=== PATIENT | female | born 1995 | race Two or more races ===

== ENCOUNTER 2017-11-23 19:45 | Emergency (ER) | payer MEDICAID ==
[2017-11-23 20:13] VITALS: BP 121/78
--- NOTE | 2017-11-23 21:07 | EDM.PDOC ---
ED HPI GENERAL MEDICAL PROBLEM - General Chief Complaint: Respiratory Problem Stated Complaint: cough headache congestion Time Seen by Provider: 11/23/17 20:22 Source of Information: Reports: Patient History Limitations: Reports: No Limitations - History of Present Illness INITIAL COMMENTS - FREE TEXT/NARRATIVE: 22-year-old female presents for evaluation and treatment of cough and a sore throat. She has been exposed to influenza a. Her father has influenza A. Patient reports headache, chills and congestion. No fever. No vomiting. Did not have influenza vaccine this season. 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 Denies: Fever HEENT: Reports: Throat Pain. Denies: Ear Pain Respiratory: Reports: Cough GI/Abdominal: Denies: Vomiting Neurological: Reports: Headache ED EXAM, GENERAL - Physical Exam Exam: See Below Exam Limited By: No Limitations General Appearance: Alert, WD/WN, No Apparent Distress Ears: Normal External Exam, Normal Canal, Hearing Grossly Normal, Normal TMs Nose: Normal Inspection Throat/Mouth: Normal Inspection, Normal Lips, Normal Oropharynx, Normal Voice, No Airway Compromise Neck: Normal Inspection Respiratory/Chest: No Respiratory Distress, Lungs Clear, Normal Breath Sounds Cardiovascular: Normal Peripheral Pulses, Regular Rate, Rhythm, No Murmur Neurological: Alert, Oriented, Normal Cognition Psychiatric: Normal Affect, Normal Mood Skin Exam: Warm, Dry, Normal Color Course - Vital Signs Last Recorded V/S: Last Vital Signs Temp 36.3 C 11/23/17 20:11 Pulse 83 11/23/17 20:11 Resp 16 11/23/17 20:11 BP 121/78 11/23/17 20:11 Pulse Ox 100 11/23/17 20:11 - Re-Assessments/Exams Free Text/Narrative Re-Assessment/Exam: 11/23/17 21:03 Patient returned positive for influenza A. Discussed risks and benefits of Tamiflu. She elects to proceed with the Tamiflu. Discharge instructions as documented. Departure - Departure Time of Disposition: 21:04 Disposition: Home, Self-Care 01 Condition: Fair Clinical Impression: Influenza - Discharge Information Prescriptions: Oseltamivir [Tamiflu] 75 mg PO BID #10 cap Referrals: PCP,None [Primary Care Provider] - Additional Instructions: Take the Tamiflu as prescribed. 1 cap Twice a day for 5 days. Tamiflu is known to cause upset stomach, nausea and diarrhea. You are contagious one day before your symptoms started and up to a week afterwards. Make sure you wash your hands and cover your cough. Rest. Make sure you're drinking plenty of fluids. [id number] Tylenol and Motrin as needed for headaches and additional pain and symptom relief. Follow-up with family medicine if not much better in 1-2 weeks. Please return to the ER for symptoms change or worsen.
== END 2017-11-23 21:14 | disposition home or self-care (01) ==
LOC: JD.ED 19:45
DX: J10.1 Influenza due to other identified influenza virus with other respiratory manifestations (principal); E66.9 Obesity, unspecified
CPT/HCPCS: 87804; 99283; 99284

== ENCOUNTER 2018-12-25 05:19 | Inpatient (IN) | payer OTHER ==
[2018-12-25] MEDS ORDERED: ceFAZolin 2 GM in Premix Bag 1 BAG IV ONE (05:45)
[2018-12-25] MEDS ORDERED: Oxytocin/Lactated Ringers 10 UNIT/1,000 ML BAG IV SCH (05:45)
[2018-12-25] MEDS ORDERED: Nalbuphine 20 MG/ML 1 ML Syringe IVPUSH PRN (05:45)
[2018-12-25] MEDS ORDERED: Sodium Chloride 0.9% 10 ML Syringe FLUSH PRN (05:45)
[2018-12-25] MEDS ORDERED: Citric Acid/Sodium Citrate Solution 30 ML Cup PO ONE (05:45)
[2018-12-25] MEDS ORDERED: Metoclopramide 10 MG/2 ML SDV IVPUSH ONE (05:45)
--- NOTE | 2018-12-25 06:11 | PCM.PREANE ---
Preanesthetic Assessment - Anesthesia/Transfusion/Family Hx Anesthesia History: Prior Anesthesia Without Reaction Family History of Anesthesia Reaction: No Transfusion History: No Prior Transfusion(s) Intubation History: Unknown - Review of Systems General: No Symptoms Pulmonary: No Symptoms Cardiovascular: No Symptoms Gastrointestinal: No Symptoms Neurological: No Symptoms Other: Reports: None - Physical Assessment NPO Status Date: 12/24/18 NPO Status Time: 11:55 O2 Sat by Pulse Oximetry: 96 Respiratory Rate: 16 Vital Signs: Last Vital Signs Temp 36.4 C 12/25/18 05:32 Pulse 84 12/25/18 05:32 Resp 16 12/25/18 05:32 BP 136/83 12/25/18 05:32 Pulse Ox 96 12/25/18 05:32 Height: 1.55 m Weight: 96.162 kg ASA Class: 2 Mental Status: Alert & Oriented x3 Airway Class: Mallampati = 2 Dentition: Reports: Normal Dentition ROM/Head Extension: Full Lungs: Clear to Auscultation, Normal Respiratory Effort Cardiovascular: Regular Rate, Regular Rhythm, No Murmurs - Allergies Allergies/Adverse Reactions: Allergies Allergy/AdvReac Type Severity Reaction Status Date / Time bee venom protein (honey bee) Allergy Other Verified 12/25/18 05:44 - Blood Blood Available: No Product(s) Available: None - Anesthesia Plan Pre-Op Medication Ordered: None - Acknowledgements Anesthesia Type Planned: Spinal Pt an Appropriate Candidate for the Planned Anesthesia: Yes Alternatives and Risks of Anesthesia Discussed w Pt/Guardian: Yes Pt/Guardian Understands and Agrees with Anesthesia Plan: Yes PreAnesthesia Questionnaire - Past Health History Medical/Surgical History: Denies Medical/Surgical History HEENT History: Reports: None Cardiovascular History: Reports: None Respiratory History: Reports: None Gastrointestinal History: Reports: GERD Genitourinary History: Reports: None 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: Musculoskeletal History: Reports: None Neurological History: Reports: None Psychiatric History: Reports: Anxiety Endocrine/Metabolic History: Reports: Obesity/BMI 30+ - Infectious Disease History Infectious Disease History: Reports: Chicken Pox - Past Surgical History Female Surgical History: Reports: Section - HOME MEDS Home Medications: Home Meds PNV95/Ferrous Fumarate/FA [ Tablet] 1 tab PO DAILY 07/20/18 [History] - CURRENT (IN HOUSE) MEDS Current Meds: Current Medications Cefazolin Sodium/Dextrose 2 gm (/ Premix) 50 mls @ 100 mls/hr IV ONETIME ONE Stop: 12/25/18 06:14 Lactated Ringer's (Ringers, Lactated) 1,000 mls @ 125 mls/hr IV ASDIRECTED [facility] Oxytocin/Lactated Ringer's (Pitocin In Lr 10 Units/1,000 Ml) 10 unit in 1,000 mls @ 100 mls/hr IV ASDIRECTED [facility] Nalbuphine HCl (Nubain) 10 mg IVPUSH Q2H PRN PRN Reason: pain Sodium Chloride (Saline Flush) 10 ml FLUSH ASDIRECTED PRN PRN Reason: Keep Vein Open Discontinued Medications Citric Acid/Sodium Citrate (Bicitra Solution) 30 ml PO ONETIME ONE Stop: 12/25/18 05:46 Metoclopramide HCl (Reglan) 10 mg IVPUSH ONETIME ONE Stop: 12/25/18 05:46
[2018-12-25] MEDS: Lactated Ringers 1,000 ML IV SCH ×2 (06:15→06:57)
[2018-12-25] MEDS ORDERED: Morphine PF 1 MG/ML Amp ONE (06:26)
[2018-12-25] MEDS ORDERED: Oxytocin 10 Units/1 ML SDV ONE ×3 (06:26→06:27)
[2018-12-25] MEDS ORDERED: ePHEDrine 50 MG/ML SDV ONE (06:27)
[2018-12-25] MEDS ORDERED: Ketorolac 30 MG/ML SDV ONE (06:27)
[2018-12-25] MEDS ORDERED: ceFAZolin 1 GM Vial ONE ×2 (06:27→06:28)
--- NOTE | 2018-12-25 07:07 | PCM.OPNOTE ---
- General Post-Op/Procedure Note Date of Surgery/Procedure: 12/25/18 Operative Procedure(s): Repeat low transverse Findings: Minimal adhesive disease between the rectus muscles and fascia. Minimal intraabdominal adhesive disease. Baby girl in a vertex presentation. Weight of 8 lbs 8 oz and APGARS of 8 & 9. Pre Op Diagnosis: 40 5/7 wks. History of Post-Op Diagnosis: Same Anesthesia Technique: Spinal Primary Surgeon: Eunice Brooks Secondary Surgeon: Olivia Mejia Anesthesia Provider: Mark Lopez Reason Food Manager Was Necessary: BMI of patient. Speed/safety of procedure. Pathology: Cord blood collected. Placenta discarded. Fluid Replacement, Intraop: 1,000 Output, Urine Amount: 10 EBL in mLs: 500 Complications: None Condition: Good Free Text/Narrative:: The risks, benefits, indications, potential complications, and alternatives were explained to the patient and informed consent obtained. After induction of anesthesia, the patient was placed in a supine position and then draped and prepped in the usual sterile manner. A Pfannenstiel incision was made and carried down through the subcutaneous tissue to the fascia. Fascial incision was made and extended transversely. The fascia was from the underlying rectus tissue superiorly and inferiorly. The peritoneum was identified and entered. Peritoneal incision was extended longitudinally. The utero-vesical peritoneal reflection was incised transversely and the bladder flap was bluntly freed from the lower uterine segment. A low transverse uterine incision was made sharply with a scalpel and extended bluntly in a cephalocaudad direction. A baby girl was delivered from a vertex presentation with APGARS as above. After the umbilical cord was clamped and cut cord blood was obtained for evaluation. The placenta was removed intact and appeared normal. The uterus was exteriorized and cleared of clots. The uterine outline, tubes and ovaries appeared normal. The uterine incision was closed with running locked sutures of 0 Vicryl. Hemostasis was obtained with a second imbricating layer of 0 vicryl. The uterus was then placed back into the abdomen. The infracolic gutters were cleared of blood clots. The fascia was then reapproximated with running sutures of 0 Vicryl. The sucutaneous tissue was irrigated with sterile warm normal saline, hemostasis obtained with cautery. This layer was also closed with a running 0 vicryl suture. The skin was reapproximated with running Subcuticular 4-0 monocryl sutures. Instrument, sponge, and needle counts were correct prior the abdominal closure and at the conclusion of the case.
[2018-12-25] MEDS ORDERED: Midazolam 1 MG/ML 2 ML SDV ONE (08:19)
[2018-12-25] MEDS ORDERED: fentaNYL 100 MCG/2 ML SDV IVPUSH PRN (08:43)
--- NOTE | 2018-12-25 08:45 | PCM.POSTAN ---
POST ANESTHESIA ASSESSMENT - MENTAL STATUS Mental Status: Alert - RESPIRATORY Respiratory Status: Respiratory Rate WNL, Airway Patent, O2 Saturation Stable - CARDIOVASCULAR CV Status: Pulse Rate WNL, Blood Pressure Stable - GASTROINTESTINAL GI Status: No Symptoms - POST OP HYDRATION Hydration Status: Adequate & Stable
--- NOTE | 2018-12-25 08:55 | PCM48HPAN ---
Post Anesthesia Note - EVALUATION WITHIN 48HRS OF ANESTHETIC Patient Participated in Evaluation: Yes Respiratory Function Stable: Yes Airway Patent: Yes Cardiovascular Function Stable: Yes Hydration Status Stable: Yes Pain Control Satisfactory: Yes Nausea and Vomiting Control Satisfactory: Yes Mental Status Recovered: Yes Resp Rate: 20
[2018-12-25] MEDS ORDERED: Dextrose 5%-Lactated Ringers 1,000 ML IV SCH (09:19)
[2018-12-25] MEDS ORDERED: Lanolin 100% Cream 7 GM Tube TOP PRN (09:19)
[2018-12-25] MEDS ORDERED: ePHEDrine 50 MG/ML SDV IVPUSH PRN (09:19)
[2018-12-25] MEDS ORDERED: Naloxone 0.4 MG/ML SDV IVPUSH PRN (09:19)
[2018-12-25] MEDS ORDERED: diphenhydrAMINE 50 MG/ML SDV IVPUSH PRN (09:19)
[2018-12-25] MEDS ORDERED: Ondansetron 4 MG/2 ML SDV IV PRN (09:19)
[2018-12-25] MEDS: Acetaminophen/oxyCODONE 325-5 MG Tab PO PRN (11:27)
[2018-12-25] MEDS ORDERED: Ketorolac 30 MG/ML SDV IVPUSH SCH (14:15)
[2018-12-25] MEDS: Ketorolac 30 MG/ML SDV IVPUSH SCH (21:46)
[2018-12-26] MEDS: Ketorolac 30 MG/ML SDV IVPUSH SCH (04:13)
--- NOTE | 2018-12-26 06:27 | PCM.PNPP ---
- General Info Date of Service: 12/26/18 Functional Status: Reports: Pain Controlled, Tolerating Diet, Ambulating - Review of Systems General: Reports: No Symptoms Pulmonary: Reports: No Symptoms Cardiovascular: Reports: Palpitations Gastrointestinal: Reports: No Symptoms Genitourinary: Reports: No Symptoms Musculoskeletal: Reports: No Symptoms Neurological: Reports: No Symptoms - Patient Data Vital Signs - Most Recent: Last Vital Signs Temp 36.7 C 12/26/18 03:58 Pulse 111 H 12/26/18 03:59 Resp 16 12/26/18 06:00 BP 132/79 12/26/18 03:58 Pulse Ox 98 12/26/18 06:00 Weight - Most Recent: 96.162 kg I&O - Last 24 Hours: Intake & Output 12/25/18 12/25/18 12/26/18 14:59 22:59 06:59 Intake Total 1940 600 Output Total 495 1400 1230 Balance 1445 -800 -1230 Lab Results - Last 24 Hours: Laboratory Results - last 24 hr 12/25/18 Range/Units 05:54 Blood Type O POSITIVE Gel Antibody Screen Negative Med Orders - Current: Current Medications Diphenhydramine HCl (Benadryl) 25 mg IVPUSH Q6H PRN PRN Reason: Itching or Nausea Docusate Sodium (Colace) 100 mg PO Q12H PRN PRN Reason: Constipation Emollient Ointment (Lansinoh Hpa) 0 gm TOP ASDIRECTED PRN PRN Reason: Sore Nipples Ephedrine Sulfate (Ephedrine Sulfate) 5 mg IVPUSH SEECOMMENT PRN PRN Reason: Other Ibuprofen (Motrin) 600 mg PO Q6H PRN PRN Reason: mild pain or fever Naloxone HCl (Narcan) 0.1 mg IVPUSH SEECOMMENT PRN PRN Reason: Respiratory Depression Ondansetron HCl (Zofran) 4 mg IV Q8H PRN PRN Reason: Nausea/Vomiting Oxycodone/Acetaminophen (Percocet 325-5 Mg) 2 tab PO Q4H PRN PRN Reason: Pain (moderate 4-6) Last Admin: 12/25/18 11:27 Dose: 2 tab Discontinued Medications Cefazolin Sodium (Ancef) Confirm Administered Dose 1 gm .ROUTE .STK-MED ONE Stop: 12/25/18 06:28 Cefazolin Sodium (Ancef) Confirm Administered Dose 1 gm .ROUTE .STK-MED ONE Stop: 12/25/18 06:29 Citric Acid/Sodium Citrate (Bicitra Solution) 30 ml PO ONETIME ONE Stop: 12/25/18 05:46 Last Admin: 12/25/18 07:16 Dose: 30 ml Ephedrine Sulfate (Ephedrine Sulfate) Confirm Administered Dose 50 mg .ROUTE .STK-MED ONE Stop: 12/25/18 06:28 Fentanyl (Sublimaze) 50 mcg IVPUSH Q5M PRN PRN Reason: Pain Stop: 12/25/18 16:00 Cefazolin Sodium/Dextrose 2 gm (/ Premix) 50 mls @ 100 mls/hr IV ONETIME ONE Stop: 12/25/18 06:14 Last Admin: 12/25/18 12:00 Dose: Not Given Lactated Ringer's (Ringers, Lactated) 1,000 mls @ 125 mls/hr IV ASDIRECTED [facility] Last Admin: 12/25/18 06:57 Dose: 125 mls/hr Oxytocin/Lactated Ringer's (Pitocin In Lr 10 Units/1,000 Ml) 10 unit in 1,000 mls @ 100 mls/hr IV ASDIRECTED [facility] Dextrose/Lactated Ringer's (Dextrose 5%-Lactated Ringers) 1,000 mls @ 125 mls/ hr IV ASDIRECTED [facility] Stop: 12/25/18 17:18 Last Admin: 12/25/18 12:00 Dose: 250 mls/hr Ketorolac Tromethamine (Toradol) Confirm Administered Dose 30 mg .ROUTE .STK- MED ONE Stop: 12/25/18 06:28 Ketorolac Tromethamine (Toradol) 30 mg IVPUSH Q6H [facility] Stop: 12/26/18 02:16 Last Admin: 12/25/18 16:13 Dose: 30 mg Ketorolac Tromethamine (Toradol) 30 mg IVPUSH Q6H [facility] Stop: 12/26/18 04:01 Last Admin: 12/26/18 04:13 Dose: 30 mg Metoclopramide HCl (Reglan) 10 mg IVPUSH ONETIME ONE Stop: 12/25/18 05:46 Last Admin: 12/25/18 07:16 Dose: 10 mg Midazolam HCl (Versed 1 Mg/Ml) Confirm Administered Dose 2 mg .ROUTE .STK-MED ONE Stop: 12/25/18 08:20 Morphine Sulfate (Duramorph Pf) Confirm Administered Dose 1 mg .ROUTE .STK-MED ONE Stop: 12/25/18 06:27 Nalbuphine HCl (Nubain) 10 mg IVPUSH Q2H PRN PRN Reason: pain Oxytocin (Pitocin) Confirm Administered Dose 10 unit .ROUTE .STK-MED ONE Stop: 12/25/18 06:27 Oxytocin (Pitocin) Confirm Administered Dose 10 unit .ROUTE .STK-MED ONE Stop: 12/25/18 06:27 Oxytocin (Pitocin) Confirm Administered Dose 10 unit .ROUTE .STK-MED ONE Stop: 12/25/18 06:28 Sodium Chloride (Saline Flush) 10 ml FLUSH ASDIRECTED PRN PRN Reason: Keep Vein Open - Infant Interaction Infant Disposition, : in Room with Family Infant Interaction: Holding Feeding: Attempted ; Nursed Fair/Poor Support Person: Significant Other - Recovery Exam Fundal Tone: Firm Fundal Level: At Umbilicus Fundal Placement: Midline Lochia Amount: Small Lochia Color: Rubra/Red Perineum Description: Intact, Minimal Bruising/Swelling Episiotomy/Laceration: None Urinary Elimination: Indwelling Catheter - Exam General: Alert, Oriented, Cooperative Lungs: Clear to Auscultation, Normal Respiratory Effort Cardiovascular: Regular Rate, Regular Rhythm GI/Abdominal Exam: Soft, Tender (appropriate post op ) Extremities: Normal Inspection Skin: Warm, Dry, Intact Wound/Incisions: Dressing Dry and Intact - Problem List & Annotations (1) 40 weeks gestation of SNOMED Code(s): 50885219 Code(s): Z3A.40 - 40 WEEKS GESTATION OF Status: Acute Current Visit: Yes (2) S/P repeat low transverse SNOMED Code(s): 537742197, 30212592, 948314846, 674272667, 701438863 Code(s): Z98.891 - HISTORY OF UTERINE SCAR FROM PREVIOUS SURGERY Status: Acute Current Visit: Yes - Problem List Review Problem List Initiated/Reviewed/Updated: Yes - My Orders Last 24 Hours: My Active Orders 12/25/18 05:45 Vital Signs [RC] PFP Resuscitation Status Routine 12/25/18 09:19 Activity as Tolerated [RC] .Routine Antiembolic Devices [RC] PER UNIT ROUTINE Communication Order [RC] PER UNIT ROUTINE May Shower [RC] PER UNIT ROUTINE Notify Provider Intake and Out [RC] ASDIRECTED RT Incentive Spirometry [RC] Q2HWA Vital Signs [RC] Q1HR Acetaminophen/oxyCODONE [Percocet 325-5 MG] 2 tab PO Q4H PRN Docusate Sodium [Colace] 100 mg PO Q12H PRN Lanolin [Lansinoh HPA] See Dose Instructions TOP ASDIRECTED PRN Naloxone [Narcan] 0.1 mg IVPUSH SEECOMMENT PRN Ondansetron [Zofran] 4 mg IV Q8H PRN diphenhydrAMINE [Benadryl] 25 mg IVPUSH Q6H PRN ePHEDrine [ePHEDrine sulfate] 5 mg IVPUSH SEECOMMENT PRN Assess Lochia [WOMSER] Per Unit Routine Assess Uterine Involution [WOMSER] Per Unit Routine Breast Pump [WOMSER] Per Unit Routine Peripheral IV Discontinue [OM.PC] Routine Sequential Compression Device [OM.PC] Per Unit Routine 12/25/18 Breakfast Regular Diet [DIET] 12/26/18 05:11 CBC W/O DIFF,HEMOGRAM [HEME] AM 12/26/18 08:15 Ibuprofen [Motrin] 600 mg PO Q6H PRN 12/26/18 08:37 Urinary Catheter Removal [RC] Per Unit Routine - Assessment Assessment:: 23 y/o G2 now P2002 POD#1 from [facility] at 40 5/7 wks - Plan Plan:: S/p [facility] * Routine cares * Encourage breast-feeding * Discharge home in 1-2 days
[2018-12-26] MEDS: Acetaminophen/oxyCODONE 325-5 MG Tab PO PRN (11:03)
[2018-12-26] MEDS: Docusate Sodium 100 MG Cap PO PRN (14:49)
[2018-12-26] MEDS: Ibuprofen 600 MG Tab PO PRN ×2 (14:51→22:22)
[2018-12-26] MEDS ORDERED: Simethicone 80 MG Tab.Chew PO ONE (20:46)
--- NOTE | 2018-12-27 03:48 | PCM.DCSUM1 ---
Discharge Summary - Hospital Course Diagnosis: Stroke: No - Discharge Data Discharge Date: 12/27/18 Discharge Disposition: Home, Self-Care 01 Condition: Good - Patient Summary/Data Operative Procedure(s) Performed: Repeat low transverse - Patient Instructions Diet: Heart Healthy Diet Activity: No Strenuous Activities Activity, Other: pelvic rest Driving: Do Not Drive Wound/Incision Care: Keep Operative Site/Wound Site Clean and Dry Notify Provider of: Fever, Increased Pain, Swelling and Redness, Drainage, Nausea and/or Vomiting - Discharge Plan *PRESCRIPTION DRUG MONITORING PROGRAM REVIEWED*: No *COPY OF PRESCRIPTION DRUG MONITORING REPORT IN PATIENT EVIE: No Home Medications: Home Meds PNV95/Ferrous Fumarate/FA [ Tablet] 1 tab PO DAILY 07/20/18 [History] Ferrous Sulfate [Iron] 1 tab PO DAILY 12/25/18 [History] Referrals: Eunice Brooks MD [Primary Care Provider] - - Discharge Summary/Plan Comment DC Time >30 min.: No - General Info Date of Service: 12/27/18 Functional Status: Reports: Pain Controlled - Review of Systems General: Reports: No Symptoms HEENT: Reports: No Symptoms Pulmonary: Reports: No Symptoms Cardiovascular: Reports: No Symptoms Gastrointestinal: Reports: No Symptoms Genitourinary: Reports: No Symptoms Musculoskeletal: Reports: No Symptoms Skin: Reports: No Symptoms Neurological: Reports: No Symptoms Psychiatric: Reports: No Symptoms - Patient Data Vitals - Most Recent: Last Vital Signs Temp 36.7 C 12/26/18 14:55 Pulse 77 12/26/18 20:07 Resp 14 12/26/18 14:55 BP 137/78 12/26/18 20:07 Pulse Ox 99 12/26/18 20:07 Weight - Most Recent: 96.162 kg I&O - Last 24 hours: Intake & Output 12/26/18 12/26/18 12/27/18 14:59 22:59 06:59 Output Total 800 Balance -800 Lab Results - Last 24 hrs: Laboratory Results - last 24 hr 12/26/18 Range/Units 07:00 WBC 8.85 (3.98-10.04) K/mm3 RBC 3.71 L (3.98-5.22) M/mm3 Hgb 10.7 L (11.2-15.7) gm/L Hct 32.3 L (34.1-44.9) % MCV 87.1 (79.4-94.8) fl MCH 28.8 (25.6-32.2) pg MCHC 33.1 (32.2-35.5) g/dl RDW Std Deviation 44.6 (36.4-46.3) fL Plt Count 224 (182-369) K/mm3 MPV 10.3 (9.4-12.3) fl Med Orders - Current: Current Medications Diphenhydramine HCl (Benadryl) 25 mg IVPUSH Q6H PRN PRN Reason: Itching or Nausea Docusate Sodium (Colace) 100 mg PO Q12H PRN PRN Reason: Constipation Last Admin: 12/26/18 14:49 Dose: 100 mg Emollient Ointment (Lansinoh Hpa) 0 gm TOP ASDIRECTED PRN PRN Reason: Sore Nipples Ephedrine Sulfate (Ephedrine Sulfate) 5 mg IVPUSH SEECOMMENT PRN PRN Reason: Other Ibuprofen (Motrin) 600 mg PO Q6H PRN PRN Reason: mild pain or fever Last Admin: 12/26/18 22:22 Dose: 600 mg Naloxone HCl (Narcan) 0.1 mg IVPUSH SEECOMMENT PRN PRN Reason: Respiratory Depression Ondansetron HCl (Zofran) 4 mg IV Q8H PRN PRN Reason: Nausea/Vomiting Oxycodone/Acetaminophen (Percocet 325-5 Mg) 2 tab PO Q4H PRN PRN Reason: Pain (moderate 4-6) Last Admin: 12/26/18 11:03 Dose: 2 tab Discontinued Medications Cefazolin Sodium (Ancef) Confirm Administered Dose 1 gm .ROUTE .STK-MED ONE Stop: 12/25/18 06:28 Cefazolin Sodium (Ancef) Confirm Administered Dose 1 gm .ROUTE .STK-MED ONE Stop: 12/25/18 06:29 Citric Acid/Sodium Citrate (Bicitra Solution) 30 ml PO ONETIME ONE Stop: 12/25/18 05:46 Last Admin: 12/25/18 07:16 Dose: 30 ml Ephedrine Sulfate (Ephedrine Sulfate) Confirm Administered Dose 50 mg .ROUTE .STK-MED ONE Stop: 12/25/18 06:28 Fentanyl (Sublimaze) 50 mcg IVPUSH Q5M PRN PRN Reason: Pain Stop: 12/25/18 16:00 Cefazolin Sodium/Dextrose 2 gm (/ Premix) 50 mls @ 100 mls/hr IV ONETIME ONE Stop: 12/25/18 06:14 Last Admin: 12/25/18 12:00 Dose: Not Given Lactated Ringer's (Ringers, Lactated) 1,000 mls @ 125 mls/hr IV ASDIRECTED [facility] Last Admin: 12/25/18 06:57 Dose: 125 mls/hr Oxytocin/Lactated Ringer's (Pitocin In Lr 10 Units/1,000 Ml) 10 unit in 1,000 mls @ 100 mls/hr IV ASDIRECTED [facility] Dextrose/Lactated Ringer's (Dextrose 5%-Lactated Ringers) 1,000 mls @ 125 mls/ hr IV ASDIRECTED [facility] Stop: 12/25/18 17:18 Last Admin: 12/25/18 12:00 Dose: 250 mls/hr Ketorolac Tromethamine (Toradol) Confirm Administered Dose 30 mg .ROUTE .STK- MED ONE Stop: 12/25/18 06:28 Ketorolac Tromethamine (Toradol) 30 mg IVPUSH Q6H [facility] Stop: 12/26/18 02:16 Last Admin: 12/25/18 16:13 Dose: 30 mg Ketorolac Tromethamine (Toradol) 30 mg IVPUSH Q6H [facility] Stop: 12/26/18 04:01 Last Admin: 12/26/18 04:13 Dose: 30 mg Metoclopramide HCl (Reglan) 10 mg IVPUSH ONETIME ONE Stop: 12/25/18 05:46 Last Admin: 12/25/18 07:16 Dose: 10 mg Midazolam HCl (Versed 1 Mg/Ml) Confirm Administered Dose 2 mg .ROUTE .STK-MED ONE Stop: 12/25/18 08:20 Morphine Sulfate (Duramorph Pf) Confirm Administered Dose 1 mg .ROUTE .STK-MED ONE Stop: 12/25/18 06:27 Nalbuphine HCl (Nubain) 10 mg IVPUSH Q2H PRN PRN Reason: pain Oxytocin (Pitocin) Confirm Administered Dose 10 unit .ROUTE .STK-MED ONE Stop: 12/25/18 06:27 Oxytocin (Pitocin) Confirm Administered Dose 10 unit .ROUTE .STK-MED ONE Stop: 12/25/18 06:27 Oxytocin (Pitocin) Confirm Administered Dose 10 unit .ROUTE .STK-MED ONE Stop: 12/25/18 06:28 Simethicone (Simethicone) 80 mg PO ONETIME ONE Stop: 12/26/18 20:47 Last Admin: 12/26/18 20:57 Dose: 80 mg Sodium Chloride (Saline Flush) 10 ml FLUSH ASDIRECTED PRN PRN Reason: Keep Vein Open - Exam General: Reports: Alert, Oriented HEENT: Reports: Pupils Equal, Pupils Reactive, EOMI, Mucous Membr. Moist/[place] Neck: Reports: Supple Lungs: Reports: Clear to Auscultation, Normal Respiratory Effort Cardiovascular: Reports: Regular Rate, Regular Rhythm GI/Abdominal Exam: Normal Bowel Sounds, Soft, Non-Tender, No Organomegaly, No Distention, No Abnormal Bruit, No Mass, Pelvis Stable Back Exam: Reports: Normal Inspection, Full Range of Motion Extremities: Normal Inspection, Normal Range of Motion, Non-Tender, No Pedal Edema, Normal Capillary Refill Skin: Reports: Warm, Dry, Intact Wound/Incisions: Reports: Healing Well Neurological: Reports: No New Focal Deficit Psy/Mental Status: Reports: Alert, Normal Affect, Normal Mood
[2018-12-27] MEDS ORDERED: Measles, Mumps & Rubella Vaccine 0.5 ML SDV SUBCUT ONE (05:42)
[2018-12-27] MEDS: Ibuprofen 600 MG Tab PO PRN (05:59)
[2018-12-27] MEDS: Docusate Sodium 100 MG Cap PO PRN (05:59)
[2018-12-27 12:11] VITALS: BP 125/70
== END 2018-12-27 10:45 | disposition home or self-care (01) | DRG 788 ==
LOC: JD.OB 05:19
PROVIDERS: ADMIT Obstetrics & Gynecology; ATTEND Obstetrics & Gynecology
PROC: 10D00Z1 Extraction of Products of Conception, Low, Open Approach (ICD-10-PCS; principal; 2018-12-25)
PROC: 6A550ZT Pheresis of Cord Blood Stem Cells, Single (ICD-10-PCS; principal; 2018-12-25)
PROC: 3E0234Z Introduction of Serum, Toxoid and Vaccine into Muscle, Percutaneous Approach (ICD-10-PCS; 2018-12-27)
DX: O34.211 Maternal care for low transverse scar from previous cesarean delivery (principal); N85.8 Other specified noninflammatory disorders of uterus; Z37.0 Single live birth; O48.0 Post-term pregnancy; Z3A.40 40 weeks gestation of pregnancy; O99.214 Obesity complicating childbirth; E66.9 Obesity, unspecified; O99.62 Diseases of the digestive system complicating childbirth; K21.9 Gastro-esophageal reflux disease without esophagitis; O99.344 Other mental disorders complicating childbirth; F41.9 Anxiety disorder, unspecified; Z23 Encounter for immunization
CPT/HCPCS: 01961; 36415; 59025; 85025; 85027; 86850; 86900; 86901; 90471; 90707; A9270-GY; J0690; J1885; J2250; J2274; J2590; J2765; J7042; J7120

== ENCOUNTER 2019-04-27 19:33 | Emergency (ER) | payer SELFPAY ==
[2019-04-27 20:55] VITALS: BP 115/68
[2019-04-27] MEDS ORDERED: Amoxicillin/Clavulanate K 500-125 MG Tab PO ONE (20:58)
[2019-04-27] MEDS ORDERED: Acetaminophen/oxyCODONE 325-5 MG Tab PO ONE (20:59)
--- NOTE | 2019-04-27 21:03 | EDM.PDOC ---
ED HPI GENERAL MEDICAL PROBLEM - General Chief Complaint: ENT Problem Stated Complaint: TOOTH PAIN Time Seen by Provider: 04/27/19 20:58 Source of Information: Reports: Patient History Limitations: Reports: No Limitations - History of Present Illness INITIAL COMMENTS - FREE TEXT/NARRATIVE: 24-year-old female presents to the ED with diffuse dental pain coming from the upper molar teeth. She's not able to identify which tooth is a copper. She's had a root canal performed in November of this year and then a crown placed she states on she believes her first molar tooth. Pain is constant throbbing and rating up into her left mariia-face underneath her eye and even to the forehead. Pain also radiates towards the left ear. She didn't sleep at all last night. Pain started on Sunday, April 25. Onset: Gradual Onset Date: 04/25/19 Duration: Day(s):, Constant, Getting Worse Location: Reports: Face Quality: Reports: Ache (Left hemifacial pain maxillary sinus up underneath the left eye. Pain originates from upper molar teeth on the left side.), Pressure, Throbbing, Other Severity: Severe (Pulsating and throbbing at 9 on a 10) Improves with: Reports: None, Other (She has tried close embolus cell and of course Motrin and Tylenol.) Worsens with: Reports: None Context: Reports: Other (Spontaneous occurrence of dental pain). Denies: Activity, Exercise, Lifting, Sick Contact, Trauma Associated Symptoms: Reports: Headaches (From not sleeping), Loss of Appetite, Malaise. Denies: Confusion, Chest Pain, Cough, cough w sputum, Diaphoresis, Fever/Chills, Nausea/Vomiting, Rash, Seizure, Shortness of Breath, Syncope Treatments BAGGAGEMAN: Reports: Acetaminophen, NSAIDS, Other (see below) (Motrin of note patient is breast-feeding. is 4 months old) Left Upper Tooth/Teeth Pain Score (Numeric/FACES): 10 - Related Data Allergies Allergy/AdvReac Type Severity Reaction Status Date / Time bee venom protein (honey bee) Allergy Other Verified 12/25/18 05:44 Home Meds: Home Meds Amoxicillin/Potassium Clav [Augmentin 500-125 Tablet] 1 each PO BID #20 tablet 04/27/19 [Rx] oxyCODONE HCl/Acetaminophen [Percocet 5-325 mg Tablet] 1 - 2 each PO Q4H PRN # 16 tablet 04/27/19 [Rx] Past Medical History - Past Health History Medical/Surgical History: Denies Medical/Surgical History HEENT History: Reports: None Cardiovascular History: Reports: None Respiratory History: Reports: None Gastrointestinal History: Reports: GERD Genitourinary History: Reports: None 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 COORDINATOR History: Reports: LMP (Approximate): Other (See Below) (Currently breast-feeding 4-month-old at home.) Musculoskeletal History: Reports: None Neurological History: Reports: None Psychiatric History: Reports: Anxiety Endocrine/Metabolic History: Reports: Obesity/BMI 30+ - Infectious Disease History Infectious Disease History: Reports: Chicken Pox - Past Surgical History Female Surgical History: Reports: Section Social & Family History - Family History Family Medical History: Noncontributory - Caffeine Use Caffeine Use: Reports: None - Living Situation & Occupation Living situation: Reports: Occupation: Unemployed ED ROS ENT - Review of Systems Review Of Systems: See Below Constitutional: Reports: No Symptoms HEENT: Reports: Dental Pain (Left upper molar teeth. She's not sure which one is the culprit tooth.), Ear Pain (Pain referred to the left ear from her teeth.) , Other (Pain referred up into the left maxillary sinus and up underneath her left eye.) Respiratory: Reports: No Symptoms Cardiovascular: Reports: No Symptoms Endocrine: Reports: Fatigue GI/Abdominal: Reports: Decreased Appetite : Reports: No Symptoms Musculoskeletal: Reports: No Symptoms Skin: Reports: No Symptoms Neurological: Reports: No Symptoms Psychiatric: Reports: No Symptoms ED EXAM, ENT - Physical Exam Exam: See Below Exam Limited By: No Limitations General Appearance: Alert, WD/WN, Moderate Distress, Other (Vital signs are all stable.) Eye Exam: Bilateral Eye: Normal Inspection, PERRL Ears: Normal TMs Mouth/Throat: Dental Pain (She has pain to palpation with a tongue blade to the first second and third molars left upper maxilla. It appears that the first molar has been the tooth that has had the root canal. It was exquisitely tender to touch suggesting that it has become infected. Anginal abscess that would benefit from drainage.) Head: Atraumatic, Normocephalic, Facial Swelling (Very slight) Neck: Normal Inspection ( facial swelling on the left cheek.), Supple, Non- Tender, Full Range of Motion. No: Lymphadenopathy (L), Lymphadenopathy (R) Respiratory/Chest: No Respiratory Distress, Lungs Clear, Normal Breath Sounds Cardiovascular: Normal Peripheral Pulses, Regular Rate, Rhythm, No Edema, No Gallop, No Murmur, No Rub Course - Vital Signs Last Recorded V/S: Last Vital Signs Temp 36.5 C 04/27/19 20:52 Pulse 96 04/27/19 20:52 Resp 20 04/27/19 20:52 BP 115/68 04/27/19 20:52 Pulse Ox 95 04/27/19 20:52 - Orders/Labs/Meds Meds: Medications Discontinued Medications Generic Name Dose Route Start Last Admin Trade Name Freq PRN Reason Stop Dose Admin Amoxicillin/Clavulanate Potassium 1 tab 04/27/19 20:58 04/27/19 21:10 Augmentin 500 Mg\125 Mg PO 04/27/19 20:59 1 tab ONETIME ONE Administration Oxycodone/Acetaminophen 2 tab 04/27/19 20:59 04/27/19 21:09 Percocet 325-5 Mg PO 04/27/19 21:00 2 tab ONETIME ONE Administration - Radiology Interpretation Free Text/Narrative:: 24-year-old female presents to the ED with dental pain left upper molars. She is to clarify which tooth is the culprit tooth. He has had one of the molars have a root canal in November of this year. This was done in [place]. Pain started 3 days ago and is been gradually worsening in intensity. She has tried close, AmBisome, Motrin and Tylenol with no relief. Of note she is currently breast-feeding a 4-month-old youngster at home. Examination reveals pain to palpation of the first second and third upper molar tooth on the left side. Is very minimal swelling of the left mariia-face without evidence of cellulitis at this time. Plan Augmentin 500/125 mg twice a day for the next 10 days with the first tablet provided through the ED tonight. Percocet tabs 5/325 mg 2 tablets by mouth now. Prescription written for 16 further tablets to be used as needed over the next couple of days until the antibodies become effective. She will need a follow-up panoramic x-ray from the dentist within the next week. 5 which tooth as the culprit. Departure - Departure Time of Disposition: 21:00 Disposition: Home, Self-Care 01 Condition: Fair Clinical Impression: Dental infection, Dental abscess - Discharge Information *PRESCRIPTION DRUG MONITORING PROGRAM REVIEWED*: Not Applicable *COPY OF PRESCRIPTION DRUG MONITORING REPORT IN PATIENT EVIE: Not Applicable Prescriptions: Amoxicillin/Potassium Clav [Augmentin 500-125 Tablet] 1 each PO BID #20 tablet oxyCODONE HCl/Acetaminophen [Percocet 5-325 mg Tablet] 1 - 2 each PO Q4H PRN # 16 tablet PRN Reason: pain relief. Instructions: Dental Abscess Referrals: PCP,None [Primary Care Provider] - Forms: ED Department Discharge Additional Instructions: Evaluation the emergency room tonight in regards to dental pain arising from the left upper molar teeth. There is evidence of the tooth that i.e. the first molar that has undergone a root canal may be the culprit tooth but second and third molar tooth are also very tender to palpation therefore makes difficult to say which tooth is a culprit in terms of causing current pain syndrome. Is a dental abscess with pain referred up into the left maxillary sinus and underneath her left eye. Integument Motrin 600 mg every 6 hours to reduce pain and inflammation. Antibiotic is to be Augmentin 500/125 mg twice daily for the next 10 days with the first tablet provided to the ED tonight. May use Percocet tabs 5/325 mg one or 2 every 4-6 hours as needed for pain relief until the antibiotic become effective which is usually 48-72 hours. The dentist for panoramic x-rays to be done to see which tooth is the culprit tooth and treatment that will be required to prevent recurrence of infection. Follow-up with dentist as soon as able.
== END 2019-04-27 21:16 | disposition home or self-care (01) ==
LOC: JD.ED 19:33
DX: K04.7 Periapical abscess without sinus (principal); E66.9 Obesity, unspecified; Z68.34 Body mass index [BMI] 34.0-34.9, adult; Z91.030 Bee allergy status
CPT/HCPCS: 99282; A9270; 99283